=== PATIENT | female | born 1975 | race Caucasian/White ===

== ENCOUNTER 2020-08-25 18:14 | Emergency (ER) | payer OTHER ==
[~2020-08-25] VITALS: Ht 162.6 cm; Wt 86.2 kg
[2020-08-25 20:05] VITALS: BP 144/88
[2020-08-25] MEDS ORDERED: KETOROLAC TROMETH 60MG/2ML VIAL IM ONE (20:45)
== END 2020-08-25 21:20 | disposition home or self-care (01) ==
LOC: ER 18:14 → EDBD 18:14 → ER 21:20
DX: M54.2 Cervicalgia (principal); M62.838 Other muscle spasm; Z88.0 Allergy status to penicillin; V43.52XA Car driver injured in collision with other type car in traffic accident, initial encounter; Y93.89 Activity, other specified; Y92.89 Other specified places as the place of occurrence of the external cause; Y99.8 Other external cause status
CPT/HCPCS: 70450; 71250; 72125; 74176; 96372; 99285; J1885